=== PATIENT | female | born 1940 | race Caucasian/White ===

== ENCOUNTER 2020-03-25 16:05 | Emergency (ER) | payer MEDICARE ==
--- NOTE | 2020-03-25 16:08 | ERPHSYRPT ---
- History of Present Illness Time Seen by Provider: 03/25/20 16:08 Source: patient Exam Limitations: no limitations Physician History: Is a 79-year-old female who was walking down a pathway and felt as though her right knee gave out. She fell to the ground on her right hip and has pain in the right hip area that radiates into her right groin. Patient states that she iced the area and took ibuprofen and continued to feel some pain so she came into the emergency department for evaluation. Patient states that she can weight-bear but it hurts to do so. The patient has Social Circle at home but has not been taking that for anything because it makes her feel funny and sick. Patient did not have any dizziness or syncopal episode. She did not hit her head. She has no neck or back pain. She denies shortness of breath and she denies chest pain. Occurred: just prior to arrival Reason for Fall: tripped (After right knee gave out) Injuries/Pain Location: pelvis (And right hip), radiates to (Right groin) Loss of Consciousness: no loss of consciousness Quality: aching Severity of Pain-Max: mild Severity of Pain-Current: mild Modifying Factors: Improves With: movement Associated Symptoms (Fall): extremity injury (Right hip), trouble walking, No neck pain, No shortness of breath Allergies/Adverse Reactions: No Known Drug Allergies Allergy (Verified 03/25/20 16:17) Home Medications: Acetaminophen 500 mg [Tylenol Extra Strength 500 mg] 1,000 mg PO Q4H PRN PRN 11/24/18 [History] Amlodipine Besylate 5 mg PO QAM 11/24/18 [History] Cholecalciferol (Vitamin D3) [Vitamin D3] 1,000 unit PO QAM 11/24/18 [History] Dicyclomine HCl 10 mg PO DAILY 11/24/18 [History] Hydroxyurea 1,000 mg PO SUSA@0800 11/24/18 [History] Hydroxyurea 500 mg PO MOTUWETHFR@0800 11/24/18 [History] L.acidoph,Paracasei, B.lactis [Probiotic] 1 cap PO QAM 11/24/18 [History] Levothyroxine Sodium 25 mcg PO QAM 11/24/18 [History] Metoprolol Tartrate 25 mg PO BID 04/23/19 [History] Furosemide 40 mg PO QAM 06/18/19 [History] Travel Risk - International Travel Have you traveled outside of the country in past 3 weeks: No - Coronavirus Screening Are you exhibiting any of the following symptoms?: No Close contact with a COVID-19 positive Pt in past 14-21 Days: No - Review of Systems Constitutional: No Symptoms Eyes: No Symptoms Ears, Nose, & Throat: No Symptoms Respiratory: No Symptoms Cardiac: No Symptoms Abdominal/Gastrointestinal: No Symptoms Genitourinary Symptoms: No Symptoms Musculoskeletal: Fall, Injury (Right hip) Skin: No Symptoms Neurological: No Symptoms Psychological: No Symptoms Endocrine: No Symptoms Hematologic/Lymphatic: No Symptoms Immunological/Allergic: No Symptoms All Other Systems: Reviewed and Negative - Past Medical History Neurological History: No Pertinent History Cardiac History: Hypertension Respiratory History: No Pertinent History Endocrine Medical History: Hypothyroidism Musculoskeletal History: Arthritis GI Medical History: No Pertinent History History: No Pertinent History Psycho-Social History: No Pertinent History Female Reproductive Disorders: No Pertinent History Other Medical History: GERD, BLADDER CANCER (SMALL LESIONS REMOVED X 2 2004, 2016), GANGLION CYST REMOVED LEFT THUMB, - Past Surgical History Neuro Surgical History: No Pertinent History Cardiac: No Pertinent History Respiratory: No Pertinent History Gastrointestinal: No Pertinent History Genitourinary: No Pertinent History Musculoskeletal: No Pertinent History Female Surgical History: No Pertinent History - Nursing Vital Signs Nursing Vital Signs: Initial Vital Signs Temperature 98.0 F 03/25/20 16:10 Pulse Rate 86 03/25/20 16:10 Respiratory Rate 18 03/25/20 16:10 Blood Pressure 153/64 03/25/20 16:10 O2 Sat by Pulse Oximetry 97 03/25/20 16:10 Pain Scale Pain Intensity 2 - Derek Coma Score Best Eye Response (Derek): (4) open spontaneously Best Verbal Response (Derek): (5) oriented Best Motor Response (Lapaz): (6) obeys commands Derek Total: 15 - Physical Exam General Appearance: no apparent distress, alert, anxiety Head Injury: no evidence of injury Eye Exam: PERRL/EOMI, eyes nml inspection ENT Exam: airway nml, nml ext.inspection Neck Exam: supple, trachea midline, full range of motion, normal alignment, normal inspection Respiratory/Chest Exam: No chest tenderness, No respiratory distress Cardiovascular Exam: normal heart sounds, regular rate/rhythm, murmur, normal peripheral pulses Gastrointestinal Exam: No tenderness Rectal Exam: not done Back Exam: normal inspection, normal range of motion, No CVA tenderness Extremity Exam: normal range of motion, pelvis stable, hip tenderness (Right side) - Course Nursing assessment & vital signs reviewed: Yes Ordered Tests: Active Orders 24 hr Category Date Time Status FEMUR Stat Exams 03/25/20 16:12 Taken HIP UNI (2V) INCL PEL IF DONE Stat Exams 03/25/20 16:12 Taken KNEE (1 OR 2 VIEW) Stat Exams 03/25/20 16:12 Taken PELVIS WITHOUT CONTRAST [CT] Stat Exams 03/25/20 17:28 Taken Medication Summary Discontinued Medications Generic Name Dose Route Start Last Admin Trade Name Freq PRN Reason Stop Dose Admin Morphine Sulfate 2 mg 03/25/20 17:28 03/25/20 17:42 Morphine Sulfate 2 Mg Inj IM 03/25/20 17:29 2 mg STAT ONE Administration Morphine Sulfate Confirm 03/25/20 17:40 Morphine Sulfate 2 Mg Inj Administered 03/25/20 17:41 Dose 2 mg .ROUTE .STK-MED ONE Ondansetron HCl 4 mg 03/25/20 17:29 03/25/20 17:41 Zofran Odt 4 Mg PO 03/25/20 17:30 4 mg STAT ONE Administration Ondansetron HCl Confirm 03/25/20 17:39 Zofran Odt 4 Mg Administered 03/25/20 17:40 Dose 4 mg .ROUTE .STK-MED ONE - Progress Progress: improved, pain not gone completely, re-examined Progress Note: 03/25/20 19:07 X-ray of the right knee reveals no evidence of any acute fracture or dislocation. X-ray of the right femur reveals no acute fracture or dislocation X-ray of the right hip was read by Raghav and there was a question of a indeterminate age right subcapital fracture that is mild. CAT scan of the right hip reveals no acute fracture or dislocation. Counseled pt/family regarding: diagnosis, need for follow-up, rad results - Departure Departure Disposition: Home Clinical Impression: Fall with injury, Contusion Condition: Stable Critical Care Time: No Referrals: KELVIN MCBRIDE, [Primary Care Provider] - Additional Instructions: Pack to area 3 times a day for the next 48 hours. Use ibuprofen 400 mg with food 3 times a day for the next 4 days. May use one half of your Social Circle pain medicine every 8 hours as needed. Ambulation as tolerated. Follow-up with your primary care physician if your pain persists.
[2020-03-25] MEDS ORDERED: MORPHINE SULFATE 2 MG INJ IM ONE (17:28)
[2020-03-25] MEDS ORDERED: ZOFRAN ODT 4 MG PO ONE (17:29)
[2020-03-25] MEDS ORDERED: ZOFRAN ODT 4 MG ONE (17:39)
[2020-03-25] MEDS ORDERED: MORPHINE SULFATE 2 MG INJ ONE (17:40)
[2020-03-25 19:23] VITALS: BP 142/67; PULSE 88; O2SAT 96
--- NOTE | 2020-03-25 22:10 | XRAY ---
Indication: Right hip pain with weightbearing. Status post fall. Multiple contiguous axial images obtained through the pelvis with special attention to the osseous structures. Two-dimensional sagittal and coronal reformatted images obtained. Comparison: None Mild osteopenia. No acute fracture, dislocation, or suspicious bony lesions. SI joints are bilaterally symmetric. Visualized pelvic contents demonstrates descending/sigmoid diverticulosis and pessary ring. Impression: Negative acute fracture/dislocation. Incidental osteopenia and colonic diverticulosis.. Comment: Preliminary interpretation was made by [facility]. No critical discrepancy.
--- NOTE | 2020-03-25 22:12 | XRAY ---
Indication: Hip pain following fall. Comparison: None AP pelvis and two-view right hip demonstrates mild lower lumbar degenerative spondylosis and pelvic pessary ring. No other bony, articular, or soft tissue abnormalities. Comment: Preliminary interpretation was made by [facility] who reports right subcapital fracture which I do not appreciate.
--- NOTE | 2020-03-25 22:12 | XRAY ---
Indication: Pain following fall. Comparison: None 2 view right femur demonstrates tiny posterior knee fabella. No other bony, articular, or soft tissue abnormalities.
--- NOTE | 2020-03-25 22:14 | XRAY ---
Indication: Pain following fall. Comparison: None 3 view right knee demonstrates mild lateral joint space narrowing/spurring and tiny posterior fabella. No other bony, articular, or soft tissue abnormalities.
== END 2020-03-25 19:27 | disposition home or self-care (01) ==
LOC: ED 16:05
DX: S70.01XA Contusion of right hip, initial encounter (principal); M25.551 Pain in right hip; W01.0XXA Fall on same level from slipping, tripping and stumbling without subsequent striking against object, initial encounter; Z79.899 Other long term (current) drug therapy; I10 Essential (primary) hypertension; E03.9 Hypothyroidism, unspecified
CPT/HCPCS: 72192; 73502; 73552; 73560; 96372; 99284; J2270; Q0162

== ENCOUNTER 2020-04-16 10:27 | Inpatient (IN) | payer MEDICARE ==
[2020-04-16] MEDS ORDERED: TYLENOL EXTRA STRENGTH 500 MG PO PRN (15:57)
[2020-04-16] MEDS: NORCO 5/325 MG PO PRN ×2 (16:04→20:20)
[2020-04-16] MEDS ORDERED: MEDICATION INTERVENTION MC SCH ×2 (16:15)
[2020-04-16] MEDS: ELIQUIS 2.5 MG TABLET PO SCH (20:21)
[2020-04-16] MEDS: Pepcid 20 MG PO SCH (20:21)
[2020-04-16] MEDS ORDERED: NON-FORMULARY ITEM (Melatonin [Melatonin] 5 MG) PO SCH (22:00)
[2020-04-17] MEDS: SYNTHROID 25 MCG PO SCH (04:45)
[2020-04-17] MEDS: NORCO 5/325 MG PO PRN ×4 (04:46→19:39)
[2020-04-17] MEDS ORDERED: HYDROXYUREA 1000 MG PO SCH (08:00)
--- NOTE | 2020-04-17 09:02 | PCM.HP ---
History of Present Illness - Chief Complaint Chief Complaint: deconditioning r/t right doris arthroplasty History of Present Illness: is a 79 year old female admitted for rehabilitation after her right hip arthroplasty. - Review of Systems Constitutional: No Fever, No Chills Eyes: No Symptoms Ears, Nose, & Throat: No Symptoms Respiratory: No Cough, No Short Of Breath Cardiac: No Chest Pain, No Edema, No Syncope Abdominal/Gastrointestinal: No Abdominal Pain, No Nausea, No Vomiting, No Diarrhea Genitourinary Symptoms: No Dysuria Musculoskeletal: No Back Pain, No Neck Pain Skin: No Rash Neurological: No Dizziness, No Focal Weakness, No Sensory Changes Psychological: No Symptoms Endocrine: No Symptoms Hematologic/Lymphatic: No Symptoms Immunological/Allergic: No Symptoms Medications & Allergies Home Medications: Home Medication List Acetaminophen 500 mg [Tylenol Extra Strength 500 mg] 650 mg PO Q4H PRN PRN 11/24/18 [History Confirmed 04/16/20] Amlodipine Besylate 2.5 mg PO QAM 11/24/18 [History Confirmed 04/16/20] Cholecalciferol (Vitamin D3) [Vitamin D3] 1,000 unit PO QAM 11/24/18 [History Confirmed 04/16/20] Hydroxyurea 1,000 mg PO SUSA@0800 11/24/18 [History Confirmed 04/16/20] Hydroxyurea 500 mg PO DAILY 11/24/18 [History Confirmed 04/16/20] L.acidoph,Paracasei, B.lactis [Probiotic] 1 cap [facility] 11/24/18 [History Confirmed 04/16/20] Levothyroxine Sodium 12.5 mcg PO QAM 11/24/18 [History Confirmed 04/16/20] Apixaban [Eliquis 2.5 mg Tablet] 2.5 mg PO BID 04/16/20 [History Confirmed 04/16/20] Ascorbic Acid 500 mg [Vitamin C 500 MG] 500 mg PO DAILY 04/16/20 [History Confirmed 04/16/20] Docusate Sodium 100 mg [Colace 100 MG] 100 mg PO DAILY 04/16/20 [History Confirmed 04/16/20] Famotidine 20 mg [Pepcid 20 MG] 20 mg PO BID 04/16/20 [History Confirmed 04/16/20] Hydrocodone/APAP 5-325 Tab^^^ [[place] 5-325 Tablet^^^] 1 - 2 tab PO Q4HPRN PRN MDD 6 04/16/20 [History Confirmed 04/16/20] Melatonin 5 mg PO HS 04/16/20 [History Confirmed 04/16/20] Metoprolol Succinate 50 mg [Toprol Xl 50 MG] 50 mg PO DAILY 04/16/20 [History Confirmed 04/16/20] Polyethylene Glycol 3350 17 gm [Miralax Powder 17GM PACKET] 17 gm PO DAILY 04/16/20 [History Confirmed 04/16/20] Allergies/Adverse Reactions: Allergies Allergy/AdvReac Type Severity Reaction Status Date / Time No Known Drug Allergies Allergy Verified 03/25/20 16:17 - Past Medical History Past Medical History: Yes Neurological History: No Pertinent History ENT History: Cataracts Cardiac History: Hypertension Respiratory History: No Pertinent History Endocrine Medical History: Hypothyroidism Musculoskelatal History: Arthritis, Fractures GI Medical History: Irritable Bowel History: Bladder Cancer Pyscho-Social History: No Pertinent History Reproductive Disorders: No Pertinent History Comment: GERD, BLADDER CANCER (SMALL LESIONS REMOVED X 2 2004, 2016), GANGLION CYST REMOVED LEFT THUMB, DVT - Female History Are you now?: No - Past Surgical History Past Surgical History: Yes Neuro Surgical History: No Pertinent History Cardiac History: Cardiac Catheterization Respiratory Surgery: No Pertinent History GI Surgical History: No Pertinent History Genitourinary Surgical Hx: No Pertinent History Musculskeletal Surgical Hx: Orthopedic Surgery Female Surgical History: Hysterectomy Other Surgical History: right hop 04/13/2020 - Social History Smoking Status: Never smoker Exposure to second hand smoke: No Alcohol: None Drug Use: none - Physical Exam Vital Signs: Vital Signs - 24 hr Temp Pulse Resp BP Pulse Ox 04/17/20 06:58 97.8 F 92 H 20 124/62 93 L 04/17/20 02:00 98.4 F 90 18 143/64 96 04/16/20 19:54 98.1 F 96 H 16 120/60 94 L 04/16/20 16:12 98.5 F 95 H 18 149/65 95 04/16/20 15:32 98.5 F 95 H 18 149/65 95 General Appearance: no apparent distress, alert Neurologic Exam: alert, oriented x 3, cooperative, normal mood/affect, nml cerebellar function, nml station & gait, sensation nml, No motor deficits Eye Exam: PERRL/EOMI, eyes nml inspection Ears, Nose, Throat Exam: normal ENT inspection, TMs normal, pharynx normal, moist mucous membranes Neck Exam: normal inspection, non-tender, supple, full range of motion Respiratory Exam: normal breath sounds, lungs clear, No respiratory distress Cardiovascular Exam: regular rate/rhythm, normal heart sounds, normal peripheral pulses Gastrointestinal/Abdomen Exam: soft, normal bowel sounds, No tenderness, No mass Back Exam: normal inspection, normal range of motion, No CVA tenderness, No vertebral tenderness Extremity Exam: normal inspection, normal range of motion, pelvis stable Skin Exam: normal color, warm, dry, No rash Lymphatic Exam: No adenopathy Assessment/Plan (1) History of total right hip arthroplasty Current Visit: Yes Status: Acute Assessment & Plan: Chief Complaint Diagnosis deconditioning r/t right doris arthroplasty Allergies Allergy/AdvReac Type Severity Reaction Status Date / Time No Known Drug Allergies Allergy Verified 03/25/20 16:17 Vital Signs (Last 24 hours) Temp Pulse Resp BP Pulse Ox 04/17/20 06:58 97.8 F 92 H 20 124/62 93 L 04/17/20 02:00 98.4 F 90 18 143/64 96 04/16/20 19:54 98.1 F 96 H 16 120/60 94 L 04/16/20 16:12 98.5 F 95 H 18 149/65 95 04/16/20 15:32 98.5 F 95 H 18 149/65 95 Home Medications Medication Instructions Recorded Confirmed Last Taken Type Apixaban [Eliquis 2.5 mg Tablet] 2.5 mg PO BID 04/16/20 04/16/20 04/16/20 History Ascorbic Acid 500 mg [Vitamin C 500 mg PO DAILY 04/16/20 04/16/20 04/16/20 History 500 MG] Docusate Sodium 100 mg [Colace 100 mg PO DAILY 04/16/20 04/16/20 04/16/20 History 100 MG] Famotidine 20 mg [Pepcid 20 20 mg PO BID 1004/16/20 04/16/20 History MG] Hydrocodone/APAP 5-325 Tab^^^ 1 - 2 tab PO Q4HPRN PRN MDD 6 04/16/20 04/16/20 Unknown History [[place] 5-325 Tablet^^^] Melatonin 5 mg PO HS 04/16/20 04/16/20 04/15/20 History Metoprolol Succinate 50 mg 50 mg PO DAILY 04/16/20 04/16/20 04/16/20 History [Toprol Xl 50 MG] Polyethylene Glycol 3350 17 gm 17 gm PO DAILY 04/16/20 04/16/20 04/16/20 History [Miralax Powder 17GM PACKET] Current Medications Generic Name Dose Route Start Last Admin Trade Name Freq PRN Reason Stop Dose Admin Acetaminophen 650 mg 04/16/20 16:01 Tylenol 325 Mg PO 05/16/20 16:00 Q4H PRN PRN pain Hydrocodone Bitart/Acetaminophen 1 - 2 tab 04/16/20 15:52 04/17/20 04:46 [place] 5/325 Mg PO 04/21/20 15:51 1 tab Q4H PRN PRN Administration PAIN Amlodipine Besylate 2.5 mg 04/17/20 10:00 Norvasc 5 Mg PO 05/17/20 09:59 QAM KATE Apixaban 2.5 mg 04/16/20 22:00 04/16/20 20:21 Eliquis 2.5 Mg Tablet PO 05/16/20 21:59 2.5 mg BID KATE Administration Ascorbic Acid 500 mg 04/17/20 10:00 Vitamin C 500 Mg PO 05/17/20 09:59 DAILY KATE Cholecalciferol 1,000 unit 04/17/20 10:00 Vitamin D PO 05/17/20 09:59 QAM KATE Docusate Sodium 100 mg 04/17/20 10:00 Colace 100 Mg PO 05/17/20 09:59 DAILY KATE Famotidine 20 mg 04/16/20 22:00 04/16/20 20:21 Pepcid 20 Mg PO 05/16/20 21:59 20 mg BID KATE Administration Lactobacillus Acidophilus 1 tab 04/17/20 10:00 Acidophilus Tablet PO 05/17/20 09:59 QAM KATE Levothyroxine Sodium 12.5 mcg 04/17/20 06:00 04/17/20 04:45 Synthroid 25 Mcg PO 05/17/20 05:59 12.5 mcg QAM@0600 KATE Administration Metoprolol Succinate 50 mg 04/17/20 10:00 Toprol Xl 50 Mg PO 05/17/20 09:59 DAILY KATE Miscellaneous Information 1 each 04/16/20 16:15 Medication Intervention 05/16/20 16:14 .RN TO CHECK WITH PT KATE Miscellaneous Information 1 each 04/16/20 16:15 Medication Intervention 05/16/20 16:14 .RN TO CHECK WITH PT KATE Miscellaneous Information 1 each 04/16/20 16:15 Medication Intervention 05/16/20 16:14 .RN TO CHECK WITH PT KATE Polyethylene Glycol 17 gm 04/17/20 10:00 Miralax Powder 17gm Packet PO 05/17/20 09:59 DAILY KATE Intake & Output (Last 24 hours) 04/14/20 04/15/20 04/16/20 04/17/20 11:59 11:59 11:59 11:59 Intake Total 440 Balance 440 Weight 67.2 kg Orders (Last 24 hours) Category Date Time Status Activity [Up With Assistance] TOLERATED Activity 04/16/20 16:02 Active Admit to Swing Bed ROUTINE Care 04/16/20 15:28 Active Code Status Order ROUTINE Care 04/16/20 16:12 Active Miscellaneous Nursing Order ROUTINE Care 04/16/20 18:59 Active House Regular Diet Diet 04/16/20 Dinner Active Acetaminophen 325 mg [Tylenol 325 mg] Med 04/16/20 16:01 Active 650 mg PO Q4H PRN PRN Amlodipine Besylate 5 mg [Norvasc 5 mg] Med 04/17/20 10:00 Active 2.5 mg PO QAM Apixaban [Eliquis 2.5 mg Tablet] Med 04/16/20 22:00 Active 2.5 mg PO BID Ascorbic Acid 500 mg [Vitamin C 500 MG] Med 04/17/20 10:00 Active 500 mg PO DAILY Cholecalciferol (Vitamin D3) [Vitamin D] Med 04/17/20 10:00 Active 1,000 unit PO QAM Docusate Sodium 100 mg [Colace 100 MG] Med 04/17/20 10:00 Active 100 mg PO DAILY Famotidine 20 mg [Pepcid 20 MG] Med 04/16/20 22:00 Active 20 mg PO BID Hydrocodone/APAP 5/325 [[place] 5/325 mg] Med 04/16/20 15:52 Active 1 - 2 tab PO Q4H PRN PRN Lactobacillus Acidophilus [Acidophilus TABLET] Med 04/17/20 10:00 Active 1 tab PO QAM Levothyroxine Sodium 25 Mcg [Synthroid 25 Mcg] Med 04/17/20 06:00 Active 12.5 mcg PO QAM@0600 Medication Intervention Med 04/16/20 16:15 Active 1 each MC .RN TO CHECK WITH PT Medication Intervention Med 04/16/20 16:15 Active 1 each MC .RN TO CHECK WITH PT Medication Intervention Med 04/16/20 16:15 Active 1 each MC .RN TO CHECK WITH PT Metoprolol Succinate 50 mg [Toprol Xl 50 MG] Med 04/17/20 10:00 Active 50 mg PO DAILY Polyethylene Glycol 3350 17 gm [Miralax Powder 17GM Med 04/17/20 10:00 Active PACKET] 17 gm PO DAILY OT Eval and Treat (MD Order) ROUTINE OT 04/18/20 08:00 Active PT Eval & Treat (MD Order) ONCE PT 04/18/20 08:00 Active Patient Care Notes (Last 24 hours) 04/17/20 06:28 Nursing Note by Jazmin Lackey Patient requested norco at 0445. Patient requested synthroid be given at this time so that "if I fall asleep you won't have to wake me up to take a pill in an hour." Synthroid given with norco. Initialized on 04/17/20 06:28 - END OF NOTE 04/16/20 21:56 Nursing Note by Jazmin Lackey Patient requested pain medicine at 2019 and requested the rest of her night meds be given at that time also r/t she wanted to try to get some sleep and was ready to go to bed for the night. Meds scheduled for 2199 were given with [employer]. Initialized on 04/16/20 21:56 - END OF NOTE Code(s): Z96.641 - PRESENCE OF RIGHT ARTIFICIAL HIP JOINT (2) Hip osteoarthritis Current Visit: Yes Status: Acute Code(s): M16.9 - OSTEOARTHRITIS OF HIP, UNSPECIFIED
[2020-04-17] MEDS: Vitamin C 500 MG PO SCH (09:35)
[2020-04-17] MEDS: ELIQUIS 2.5 MG TABLET PO SCH ×2 (09:35→21:28)
[2020-04-17] MEDS: Toprol Xl 50 MG PO SCH (09:35)
[2020-04-17] MEDS: Pepcid 20 MG PO SCH ×2 (09:35→21:28)
[2020-04-17] MEDS: NORVASC 5 MG PO SCH (09:35)
[2020-04-17] MEDS: VITAMIN D PO SCH (09:35)
[2020-04-17] MEDS: Colace 100 MG PO SCH (09:36)
[2020-04-17] MEDS: Acidophilus TABLET PO SCH (09:36)
[2020-04-17] MEDS: Miralax Powder 17GM PACKET PO SCH (09:37)
[2020-04-17] MEDS ORDERED: HYDROXYUREA 500 MG PO SCH (10:00)
[2020-04-17] MEDS ORDERED: NON-FORMULARY ITEM (L.Acidoph,Paracasei, B.Lactis [Probiotic] 1 CAP) PO SCH (10:00)
[2020-04-17] MEDS: PATIENT OWN MEDICATION PO SCH (11:21)
[2020-04-18] MEDS: SYNTHROID 25 MCG PO SCH (05:45)
[2020-04-18] MEDS: NORCO 5/325 MG PO PRN ×3 (05:48→17:24)
[2020-04-18] MEDS: PATIENT OWN MEDICATION PO SCH (07:40)
[2020-04-18] MEDS: ELIQUIS 2.5 MG TABLET PO SCH ×2 (09:46→21:54)
[2020-04-18] MEDS: VITAMIN D PO SCH (09:46)
[2020-04-18] MEDS: Toprol Xl 50 MG PO SCH (09:46)
[2020-04-18] MEDS: Acidophilus TABLET PO SCH (09:46)
[2020-04-18] MEDS: NORVASC 5 MG PO SCH (09:46)
[2020-04-18] MEDS: Pepcid 20 MG PO SCH ×2 (09:46→21:54)
[2020-04-18] MEDS: Vitamin C 500 MG PO SCH (09:47)
[2020-04-18] MEDS: Colace 100 MG PO SCH (09:51)
[2020-04-18] MEDS: Miralax Powder 17GM PACKET PO SCH (09:51)
[2020-04-18] MEDS ORDERED: Aplisol ID ONE (10:18)
[2020-04-18] MEDS ORDERED: ZOFRAN ODT 4 MG PO PRN (16:38)
[2020-04-18] MEDS ORDERED: Tums EX 750 MG PO PRN (16:39)
[2020-04-19] MEDS: SYNTHROID 25 MCG PO SCH (06:04)
[2020-04-19] MEDS: NORCO 5/325 MG PO PRN (07:31)
[2020-04-19] MEDS: PATIENT OWN MEDICATION PO SCH (07:32)
[2020-04-19] MEDS: Pepcid 20 MG PO SCH ×2 (09:28→22:05)
[2020-04-19] MEDS: NORVASC 5 MG PO SCH (09:29)
[2020-04-19] MEDS: Acidophilus TABLET PO SCH (09:31)
[2020-04-19] MEDS: VITAMIN D PO SCH (09:31)
[2020-04-19] MEDS: Vitamin C 500 MG PO SCH (09:31)
[2020-04-19] MEDS: Toprol Xl 50 MG PO SCH (09:31)
[2020-04-19] MEDS: ELIQUIS 2.5 MG TABLET PO SCH ×2 (09:31→22:05)
[2020-04-19] MEDS: Miralax Powder 17GM PACKET PO SCH (09:32)
[2020-04-19] MEDS: Colace 100 MG PO SCH (09:32)
[2020-04-19] MEDS ORDERED: Mylicon 80MG PO PRN (17:28)
--- NOTE | 2020-04-19 17:32 | PCM.NOTE ---
Date and Time: 04/19/20 1725 Subjective Assessment: Patient is doing very well post op right hip arthroplasty following a fall at home. States good pain control on Hydrocodone 5 mg but is having nausea and I ordered Zophran but that caused loose stool as she remembered it had done in the past. She has nausea at home and takes GasX and would like to try that. Patient is pleased with PT sessions. Her appetite is pretty good and is eating a grilled cheese right now sitting on the bedside. States there is pain in right hip when sitting in the recliner chair "it is too firm",otherwise no complaints. Objective Exam General Appearance: no apparent distress Neurologic Exam: alert, oriented x 3, cooperative, normal mood/affect Skin Exam: normal color, warm Eye Exam: eyes nml inspection Ears, Nose, Throat Exam: normal ENT inspection Respiratory Exam: normal breath sounds Cardiovascular Exam: regular rate/rhythm Gastrointestinal/Abdomen Exam: soft (nontender) Extremity Exam: other (right hip clean dry bandage, no pitting edema) OBJECTIVE DATA Vital Signs: Vital Signs - 24 hr Temp Pulse Resp BP Pulse Ox 04/19/20 16:04 98.4 F 70 20 120/60 98 04/19/20 11:00 98.0 F 73 20 118/57 97 04/19/20 04:19 99 F 85 18 132/63 93 L 04/18/20 23:00 98.1 F 78 20 130/63 91 L 04/18/20 20:23 97.7 F 77 19 116/58 89 L Pain Assessment - Last Documented Pain Intensity 5 Pain Scale Used [facility] Intake and Output: Intake & Output 04/17/20 04/18/20 04/19/20 04/20/20 11:59 11:59 11:59 11:59 Intake Total 440 840 500 240 Output Total 600 Balance 440 240 500 240 Weight 67.2 kg 67.2 kg Assessment/Plan (1) Aftercare following right hip joint replacement surgery Current Visit: Yes Status: Acute Assessment & Plan: doing well ,appt with Ortho surgeon in the am. Code(s): Z47.1 - AFTERCARE FOLLOWING JOINT REPLACEMENT SURGERY; Z96.641 - PRESENCE OF RIGHT ARTIFICIAL HIP JOINT (2) Nausea alone Current Visit: Yes Status: Acute Assessment & Plan: improved with Zophran but it caused diarrhea which has resolved,at home states she uses gasX and this works. (3) HTN (hypertension), benign Current Visit: Yes Status: Chronic Assessment & Plan: monitor,continue present meds Code(s): I10 - ESSENTIAL (PRIMARY) HYPERTENSION (4) Hypothyroid Current Visit: Yes Status: Chronic Assessment & Plan: continue present dose Levothyroxine Code(s): E03.9 - HYPOTHYROIDISM, UNSPECIFIED (5) H/O polycythemia vera Current Visit: Yes Status: Chronic Assessment & Plan: followed by Dr Burris is on Hydroxyurea. Code(s): Z86.2 - PRSNL HISTORY OF DIS OF THE BLD/BLD-FORM ORG/IMMUN MECHNSM (6) Hx of deep venous thrombosis Current Visit: Yes Status: Resolved Assessment & Plan: Is on Eliquis post op. Dr Clark had discontinued Coumadin at a year post DVT. Code(s): Z86.718 - PERSONAL HISTORY OF OTHER VENOUS THROMBOSIS AND EMBOLISM
[2020-04-19] MEDS: TYLENOL 325 MG PO PRN (17:50)
[2020-04-20] MEDS: TYLENOL 325 MG PO PRN ×2 (05:18→14:07)
[2020-04-20] MEDS: SYNTHROID 25 MCG PO SCH (05:20)
[2020-04-20] MEDS: NORCO 5/325 MG PO PRN (08:01)
[2020-04-20] MEDS: PATIENT OWN MEDICATION PO SCH (08:02)
[2020-04-20] MEDS: ELIQUIS 2.5 MG TABLET PO SCH ×2 (08:06→21:08)
[2020-04-20] MEDS: Toprol Xl 50 MG PO SCH (08:06)
[2020-04-20] MEDS: Pepcid 20 MG PO SCH ×2 (08:06→21:08)
[2020-04-20] MEDS: NORVASC 5 MG PO SCH (08:06)
[2020-04-20] MEDS: Vitamin C 500 MG PO SCH (08:06)
[2020-04-20] MEDS: Acidophilus TABLET PO SCH (08:06)
[2020-04-20] MEDS: VITAMIN D PO SCH (08:06)
[2020-04-20] MEDS: Colace 100 MG PO SCH (08:10)
[2020-04-20] MEDS: Miralax Powder 17GM PACKET PO SCH (08:10)
[2020-04-21] MEDS: SYNTHROID 25 MCG PO SCH (05:58)
[2020-04-21] MEDS: NORCO 5/325 MG PO PRN (07:08)
[2020-04-21] MEDS: PATIENT OWN MEDICATION PO SCH (08:12)
[2020-04-21] MEDS: Miralax Powder 17GM PACKET PO SCH (09:18)
[2020-04-21] MEDS: NORVASC 5 MG PO SCH (09:18)
[2020-04-21] MEDS: Toprol Xl 50 MG PO SCH (09:18)
[2020-04-21] MEDS: Pepcid 20 MG PO SCH ×2 (09:18→21:03)
[2020-04-21] MEDS: Vitamin C 500 MG PO SCH (09:18)
[2020-04-21] MEDS: VITAMIN D PO SCH (09:18)
[2020-04-21] MEDS: Acidophilus TABLET PO SCH (09:18)
[2020-04-21] MEDS: ELIQUIS 2.5 MG TABLET PO SCH ×2 (09:18→21:03)
[2020-04-21] MEDS: Colace 100 MG PO SCH (09:18)
[2020-04-21] MEDS: TYLENOL 325 MG PO PRN (18:47)
[2020-04-22] MEDS: SYNTHROID 25 MCG PO SCH (06:13)
[2020-04-22] MEDS: PATIENT OWN MEDICATION PO SCH (07:48)
[2020-04-22] MEDS: Acidophilus TABLET PO SCH (08:56)
[2020-04-22] MEDS: Vitamin C 500 MG PO SCH (08:56)
[2020-04-22] MEDS: NORVASC 5 MG PO SCH (08:56)
[2020-04-22] MEDS: Toprol Xl 50 MG PO SCH (08:57)
[2020-04-22] MEDS: ELIQUIS 2.5 MG TABLET PO SCH ×2 (08:57→21:40)
[2020-04-22] MEDS: VITAMIN D PO SCH (08:57)
[2020-04-22] MEDS: Colace 100 MG PO SCH (08:57)
[2020-04-22] MEDS: Miralax Powder 17GM PACKET PO SCH (08:57)
[2020-04-22] MEDS: Pepcid 20 MG PO SCH ×2 (08:57→21:40)
[2020-04-22] MEDS: TYLENOL 325 MG PO PRN ×3 (10:10→21:47)
[2020-04-22] MEDS: MEDICATION INTERVENTION MC SCH (21:41)
[2020-04-23] MEDS: SYNTHROID 25 MCG PO SCH (05:49)
[2020-04-23] MEDS: PATIENT OWN MEDICATION PO SCH (07:57)
[2020-04-23] MEDS: Vitamin C 500 MG PO SCH (09:36)
[2020-04-23] MEDS: VITAMIN D PO SCH (09:36)
[2020-04-23] MEDS: Pepcid 20 MG PO SCH ×2 (09:37→21:28)
[2020-04-23] MEDS: Acidophilus TABLET PO SCH (09:37)
[2020-04-23] MEDS: ELIQUIS 2.5 MG TABLET PO SCH ×2 (09:37→21:28)
[2020-04-23] MEDS: NORVASC 5 MG PO SCH (09:37)
[2020-04-23] MEDS: Toprol Xl 50 MG PO SCH (09:37)
[2020-04-23] MEDS: Miralax Powder 17GM PACKET PO SCH (10:08)
[2020-04-23] MEDS: Colace 100 MG PO SCH (10:08)
[2020-04-23] MEDS: TYLENOL 325 MG PO PRN (14:18)
[2020-04-24] MEDS: SYNTHROID 25 MCG PO SCH (05:59)
[2020-04-24] MEDS: PATIENT OWN MEDICATION PO SCH (07:53)
[2020-04-24] MEDS: Acidophilus TABLET PO SCH (09:25)
[2020-04-24] MEDS: Pepcid 20 MG PO SCH ×2 (09:25→21:01)
[2020-04-24] MEDS: Toprol Xl 50 MG PO SCH (09:25)
[2020-04-24] MEDS: ELIQUIS 2.5 MG TABLET PO SCH ×2 (09:25→21:01)
[2020-04-24] MEDS: VITAMIN D PO SCH (09:25)
[2020-04-24] MEDS: Vitamin C 500 MG PO SCH (09:25)
[2020-04-24] MEDS: NORVASC 5 MG PO SCH (09:25)
[2020-04-24] MEDS: Miralax Powder 17GM PACKET PO SCH (09:27)
[2020-04-24] MEDS: Colace 100 MG PO SCH (09:27)
[2020-04-24] MEDS: MEDICATION INTERVENTION MC SCH (21:02)
[2020-04-25] MEDS: TYLENOL 325 MG PO PRN (04:00)
[2020-04-25] MEDS: SYNTHROID 25 MCG PO SCH (06:35)
[2020-04-25] MEDS: PATIENT OWN MEDICATION PO SCH (07:31)
[2020-04-25] MEDS: Vitamin C 500 MG PO SCH (09:07)
[2020-04-25] MEDS: Pepcid 20 MG PO SCH ×2 (09:07→20:11)
[2020-04-25] MEDS: VITAMIN D PO SCH (09:07)
[2020-04-25] MEDS: NORVASC 5 MG PO SCH (09:07)
[2020-04-25] MEDS: ELIQUIS 2.5 MG TABLET PO SCH ×2 (09:07→20:11)
[2020-04-25] MEDS: Acidophilus TABLET PO SCH (09:07)
[2020-04-25] MEDS: Toprol Xl 50 MG PO SCH (09:07)
[2020-04-25] MEDS: Miralax Powder 17GM PACKET PO SCH (09:11)
[2020-04-25] MEDS: Colace 100 MG PO SCH (09:11)
[2020-04-25] MEDS: MEDICATION INTERVENTION MC SCH (20:12)
[2020-04-26 05:05] LABS: Hematocrit 34.6 % (35-47); Hemoglobin 10.9 gm/dl (12.0-16.0); Mean Cell Volume 108.1 fl (78-100); Mean Corpuscular Hemoglobin 34.1 pg (26-32); Mean Corpuscular Hgb Concent. 31.5 g/dl (32-36); Platelet Count 517 K/mm3 (150-450); White Blood Count 9.7 K/mm3 (4.0-10.5)
[2020-04-26 05:21] LABS: Eosinophil 2 % (0.00-3.0); Lymphocytes 12 % (24-44); Monocyte 3 % (0.0-12.0); Neutrophils 83 % (36.0-66.0); Poikilocytosis 1+; Total Cells Counted 100
[2020-04-26 05:22] LABS: ANISOCYTOSIS 1+; Platelet Estimate NORMAL (NORMAL)
[2020-04-26 05:46] LABS: ALBUMIN 3.6 g/dL (3.5-5.0); ALKALINE PHOSPHATASE 72 U/L (38-126); ANION GAP 7.7 MEQ/L (5-15); BLOOD UREA NITROGEN 15 mg/dL (7-17); CHLORIDE 103 mmol/L (98-107); Calcium 9.2 mg/dL (8.4-10.2); Carbon Dioxide 27 mmol/L (22-30); Creatinine 1 0.82 mg/dL (0.52-1.04); EST GLOMERULAR FILTRATION RATE > 60.0 ML/MIN; Glucose 103 mg/dL (74-106); Potassium 4.1 mmol/L (3.5-5.1); SGOT/AST 22 U/L (14-36); SGPT/ALT 15 U/L (0-35); SODIUM 133 mmol/L (137-145); TSH, 3RD Generation 0.171 mIU/L (0.47-4.68); Total Protein 6.3 g/dL (6.3-8.2); Uric Acid 5.4 mg/dL (2.6-6.0)
[2020-04-26] MEDS: SYNTHROID 25 MCG PO SCH (06:00)
[2020-04-26 07:47] VITALS: BP 129/60; PULSE 73; O2SAT 95
[2020-04-26] MEDS: PATIENT OWN MEDICATION PO SCH (08:36)
[2020-04-26] MEDS: Vitamin C 500 MG PO SCH (09:01)
[2020-04-26] MEDS: NORVASC 5 MG PO SCH (09:01)
[2020-04-26] MEDS: Colace 100 MG PO SCH (09:01)
[2020-04-26] MEDS: VITAMIN D PO SCH (09:01)
[2020-04-26] MEDS: ELIQUIS 2.5 MG TABLET PO SCH (09:02)
[2020-04-26] MEDS: Toprol Xl 50 MG PO SCH (09:02)
[2020-04-26] MEDS: Acidophilus TABLET PO SCH (09:02)
[2020-04-26] MEDS: Pepcid 20 MG PO SCH (09:02)
[2020-04-26] MEDS: Miralax Powder 17GM PACKET PO SCH (09:03)
--- NOTE | 2020-04-26 09:22 | PCM.DS ---
Discharge Summary Date of Admission: 04/16/20 15:28 Date of Discharge: 04/26/2020 Admitting Physician: KELVIN MCBRIDE DO Primary Care Provider: KELVIN MCBRIDE DO Allergies Allergies No Known Drug Allergies Allergy (Verified 03/25/20 16:17) Hospital Summary - Hospital Course Hospital Course: Patient suffered a right hip fracture and was treated surgically right hip hemiarthroplasty. Patient was transferred to [facility] for rehab. She has done very well in PT and is ready for Home health PT. I reviewed meds with patient . She has not needed pain med other than Tylenol for the past few days. - Vitals & Intake/Output Vital Signs: Vital Signs Temperature 97.9 F 04/26/20 07:46 Pulse Rate 73 04/26/20 07:46 Respiratory Rate 18 04/26/20 07:46 Blood Pressure 129/60 04/26/20 07:46 O2 Sat by Pulse Oximetry 95 04/26/20 07:46 Intake & Output: Intake & Output 04/23/20 04/24/20 04/25/20 04/26/20 11:59 11:59 11:59 11:59 Intake Total 880 640 760 800 Balance 880 640 760 800 Weight 63.5 kg 62.4 kg - Lab Result Diagrams: 04/26/20 04:33 04/26/20 04:33 Lab Results-Last 24 Hrs: Lab Results-Last 24 Hours 04/26/20 04/26/20 Range/Units 04:33 04:33 WBC 9.7 (4.0-10.5) K/mm3 RBC 3.20 L (4.1-5.4) M/mm3 Hgb 10.9 L (12.0-16.0) gm/dl Hct 34.6 L (35-47) % MCV 108.1 H (78-100) fl MCH 34.1 H (26-32) pg MCHC 31.5 L (32-36) g/dl RDW 14.0 (11.5-14.0) % Plt Count 517 H (150-450) K/mm3 MPV 10.0 (7.5-11.0) fl Segmented Neutrophils 83 H (36.0-66.0) % Lymphocytes (Manual) 12 L (24-44) % Monocytes (Manual) 3 (0.0-12.0) % Eosinophils (Manual) 2 (0.00-3.0) % Platelet Estimate NORMAL (NORMAL) RBC Morphology ABNORMAL Poikilocytosis 1+ Anisocytosis 1+ Sodium 133 L (137-145) mmol/L Potassium 4.1 (3.5-5.1) mmol/L Chloride 103 (98-107) mmol/L Carbon Dioxide 27 (22-30) mmol/L Anion Gap 7.7 (5-15) MEQ/L BUN 15 (7-17) mg/dL Creatinine 0.82 (0.52-1.04) mg/dL Estimated GFR > 60.0 ML/MIN Glucose 103 (74-106) mg/dL Uric Acid 5.4 (2.6-6.0) mg/dL Calcium 9.2 (8.4-10.2) mg/dL Total Bilirubin 0.40 (0.2-1.3) mg/dL AST 22 (14-36) U/L ALT 15 (0-35) U/L Alkaline Phosphatase 72 (38-126) U/L Serum Total Protein 6.3 (6.3-8.2) g/dL Albumin 3.6 (3.5-5.0) g/dL TSH 3rd Generation 0.171 L (0.47-4.68) mIU/L - Procedures and Test Procedures and Tests throughout Hospitalization: Therapy Orders & Screens 04/18/20 08:00 OT Eval and Treat ( Order) ROUTINE Comment: Consulting Provider: Physician Instructions: Reason For Exam: Diagnosis: deconditioning r/t right hip replacement PT Eval & Treat ( Order) ONCE Reason for Eval:: right hip replacement Diagnosis: deconditioning r/t right hip replacement 04/18/20 08:57 PT Clarification Order ROUTINE Comment: Physician Instructions: Reason For Exam: PT Clarification: PT TO RX 5X/WK UNTIL D/C TO ADDRESS FUNCTIONAL MOBILITY AND GAIT TRAINING, THER EX, BALANCE ACTIVITIES, PT. ED. RE; HEP, SAFETY AWARENESS, AND TOTAL HIP PRECAUTIONS. 04/18/20 10:18 PT Eval & Treat ( Order) ONCE Reason for Eval:: SWINGBED Diagnosis: deconditioning r/t right doris arthroplasty 04/18/20 18:21 OT Clarification Order ROUTINE Comment: Physician Instructions: Reason For Exam: OT Clarification: OT TO TX 5X/WK TO ADDRESS ADL/IADL AND FUNCTIONAL MOBILITY RETRAINING S/P RIGHT SYLVIA. WILL ADDRESS THERAPUTIC ACTIVITIES, A.E./DME TR AINING/EDUCATION, HIP PX TRAINING, AND FUNCTIONAL MOBILITY, THERAPUETIC EXERCISES, ETC. ALL TO MAXIMIZE HER OVERALL FUNCTIONAL ABILITY TO RETURN TO HOME WITH SPOUSE INDEPENDENTLY POSSIBLE. Discharge Exam General Appearance: no apparent distress Neurologic Exam: alert, oriented x 3, cooperative, normal mood/affect Eye Exam: eyes nml inspection Ears, Nose, Throat Exam: normal ENT inspection Neck Exam: normal inspection Respiratory Exam: normal breath sounds Cardiovascular Exam: regular rate/rhythm Gastrointestinal/Abdomen Exam: soft, normal bowel sounds Back Exam: normal inspection Extremity Exam: other (bandage lateral right hip clean and dry no surrounding redness, no pitting edema either leg.) Skin Exam: normal color, warm, dry (Patient was seen and examined on 04/25/2020 for [id number]/13/2020.) Final Diagnosis/Problem List - Final Discharge Diagnosis/Problem (1) Aftercare following right hip joint replacement surgery Current Visit: Yes Status: Acute Code(s): Z47.1 - AFTERCARE FOLLOWING JOINT REPLACEMENT SURGERY; Z96.641 - PRESENCE OF RIGHT ARTIFICIAL HIP JOINT (2) Nausea alone Current Visit: Yes Status: Resolved (3) HTN (hypertension), benign Current Visit: Yes Status: Chronic Code(s): I10 - ESSENTIAL (PRIMARY) HYPERTENSION (4) Hypothyroid Current Visit: Yes Status: Chronic Assessment & Plan: TSH tested and will discontinue Levothyroxine 25mcg and retest TSH JUN 2020. Code(s): E03.9 - HYPOTHYROIDISM, UNSPECIFIED (5) H/O polycythemia vera Current Visit: Yes Status: Chronic Code(s): Z86.2 - PRSNL HISTORY OF DIS OF THE BLD/BLD-FORM ORG/IMMUN MECHNSM (6) Hx of deep venous thrombosis Current Visit: Yes Status: Resolved Assessment & Plan: DVT OCTOBER 2018 due to PCV,Dr Casiano discontinued Coumadin OCTOBER 2019 so apollo irizarry will not go home on blood thinner. Code(s): Z86.718 - PERSONAL HISTORY OF OTHER VENOUS THROMBOSIS AND EMBOLISM - Discharge Discharge Date: 04/26/20 Disposition: Against Medical Advice Condition: Good Prescriptions: New Lactobacillus Acidophilus [Acidophilus TABLET] 1 tab PO QAM tablet Simethicone 80 mg [Mylicon 80MG] 80 mg PO QID PRN PRN tab.chew PRN Reason: Gas Or Belching Calcium Carbonate 750 mg [Tums EX 750 MG] 750 mg PO BID PRN tab.chew PRN Reason: Indigestion Ascorbic Acid 500 mg [Vitamin C 500 MG] 500 mg PO DAILY tablet Cholecalciferol (Vitamin D3) [Vitamin D] 1,000 unit PO QAM tablet Continue Hydroxyurea 500 mg PO DAILY Amlodipine Besylate 2.5 mg PO QAM Hydroxyurea 1,000 mg PO SUSA@0800 Cholecalciferol (Vitamin D3) [Vitamin D3] 1,000 unit PO QAM Acetaminophen 500 mg [Tylenol Extra Strength 500 mg] 650 mg PO Q4H PRN PRN PRN Reason: Pain Metoprolol Succinate 50 mg [Toprol Xl 50 MG] 50 mg PO DAILY Ascorbic Acid 500 mg [Vitamin C 500 MG] 500 mg PO DAILY Discontinued L.acidoph,Paracasei, B.lactis [Probiotic] 1 cap PO QAM Levothyroxine Sodium 12.5 mcg PO QAM Hydrocodone/APAP 5-325 Tab^^^ [Truro 5-325 Tablet^^^] 1 - 2 tab PO Q4HPRN PRN MDD 6 PRN Reason: Pain Polyethylene Glycol 3350 17 gm [Miralax Powder 17GM PACKET] 17 gm PO DAILY Docusate Sodium 100 mg [Colace 100 MG] 100 mg PO DAILY Apixaban [Eliquis 2.5 mg Tablet] 2.5 mg PO BID Famotidine 20 mg [Pepcid 20 MG] 20 mg PO BID Melatonin 5 mg PO HS Additional Instructions: PLACE A PILLOW BETWEEN LEGS WHEN SLEEPING OR SITTING CONTINUE PARTIAL WEIGHT BEARING FOR 3 MORE WEEKS HOME [facility] WILL BE IN TO SEE YOU. THEIR PHONE NUMBER IS [phone] Follow up with: JAXON CORBIN [NON-STAFF PHY W/O PRIVILEGES] - 07/27/20 9:15 am KELVIN MCBRIDE DO [Primary Care Provider] - 1 Week
== END 2020-04-26 13:40 | disposition home health service (06) | DRG 561 ==
LOC: MED SURG 15:28
PROVIDERS: ADMIT Family Medicine; ATTEND Family Medicine
DX: S72.001D Fracture of unspecified part of neck of right femur, subsequent encounter for closed fracture with routine healing (principal); R11.0 Nausea; I10 Essential (primary) hypertension; E03.9 Hypothyroidism, unspecified; Z86.2 Personal history of diseases of the blood and blood-forming organs and certain disorders involving the immune mechanism; Z86.718 Personal history of other venous thrombosis and embolism; Z79.01 Long term (current) use of anticoagulants; Z79.899 Other long term (current) drug therapy; M16.9 Osteoarthritis of hip, unspecified
CPT/HCPCS: 36415; 80053; 84443; 84550; 85025; Q0162; 97110-GP; A9270-GY